=== PATIENT | male | born 2000 | race Caucasian/White ===

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

== ENCOUNTER → 2020-03-30 | Outpatient (CLI) | payer SELFPAY | LOC: M LABSMTC 12:31 | PROVIDERS: ATTEND Pediatrics | DX: Z20.822 Contact with and (suspected) exposure to COVID-19 (principal) ==

== ENCOUNTER → 2020-04-02 | Outpatient (CLI) | payer SELFPAY | LOC: M LABSMTC 14:22 | PROVIDERS: ATTEND Pediatrics | DX: Z20.822 Contact with and (suspected) exposure to COVID-19 (principal) ==